=== PATIENT | female | born 1940 | race Asian ===

== ENCOUNTER 2016-12-29 15:04 | Inpatient (IN) | payer MEDICARE, OTHER ==
[~2016-12-29] VITALS: Ht 162.6 cm; Wt 65.7 kg
[~2016-12-29 15:04] MED LIST: APIX5TAB PO; ATOR20TA86 PO; FLUO15CR3 TP; FLUT16H NASAL; HYDR25TA PO; LEVO2.5S7 PO; LORA10TA7 PO; LOSA50TA37 PO; METO-323 PO; VITAD1000 PO
[2016-12-29] MEDS ORDERED: FURO20 PO (15:28)
[2016-12-29 16:36] LABS: BASOPHILS % (AUTO) 0.8 % (0.0-2.0); EOSINOPHILS % (AUTO) 6.9 % (1.0-6.0); HEMATOCRIT 44.8 % (36-46); HEMOGLOBIN 15.2 g/dL (12.0-16.0); LYMPHOCYTES # (AUTO) 1.5 K/uL (1.0-4.8); LYMPHOCYTES % (AUTO) 24.9 % (22.0-44.0); MEAN CORPUSCULAR HEMOGLOBIN 31.1 pg (26.0-34.0); MEAN CORPUSCULAR HGB CONC 33.8 G/dL (31.0-37.0); MEAN CORPUSCULAR VOLUME 92 fL (80-100); MONOCYTES # (AUTO) 0.6 K/uL (0.1-1.0); MONOCYTES % (AUTO) 9.6 % (2.0-9.0); NEUTROPHILS # (AUTO) 3.4 K/uL (1.8-7.7); NEUTROPHILS % (AUTO) 57.8 % (40.0-70.0); PLATELET COUNT (AUTO) 168 K/uL (150-450); RED BLOOD CELL COUNT(AUTO) 4.87 MIL/uL (4.00-5.20); RED CELL DISTRIBUTION WIDTH 13.5 % (11.5-14.5); WHITE BLOOD COUNT (AUTO) 5.9 K/uL (4.5-11.0)
[2016-12-29 16:46] LABS: PROTHROMBIN TIME 10.4 SEC (9.4-11.6)
[2016-12-29 16:48] LABS: ORIG DRAW (USER) PTCARESTAF
[2016-12-29 17:23] LABS: ANION GAP 6 mmol/L (8-16); CALCIUM, TOTAL 8.8 mg/dL (8.8-10.5); CARBON DIOXIDE 26 mmol/L (22-29); CHLORIDE 105 mmol/L (98-107); CREATININE 0.96 mg/dL (0.60-1.30); GLOMERULAR FILTR. RATE CALC 56 mL/min (>60); POTASSIUM 3.5 mmol/L (3.5-5.1); SODIUM SERUM 137 mmol/L (136-145); UREA NITROGEN, BLOOD 20 mg/dL (7-18)
[2016-12-29 17:49] LABS: ALANINE AMINOTRANSFERASE 15 U/L (12-78); ALBUMIN 3.4 g/dL (3.4-5.0); ASPARTATE AMINOTRANSFERASE 13 U/L (15-37); BILIRUBIN,TOTAL 0.4 mg/dL (0.1-1.0); CREATINE KINASE MB 0.9 ng/mL (0-5); CREATINE KINASE, TOTAL 78 U/L (26-192); TOTAL PROTEIN, SERUM 7.8 g/dL (6.4-8.2)
[2016-12-29] MEDS ORDERED: INSULIN ASPART 100 UNITS/ML SQ PRN (19:00)
[2016-12-29] MEDS ORDERED: ACETAMINOPHEN 325 MG TABLET PO PRN ×2 (19:00→22:15)
[2016-12-29] MEDS ORDERED: 0.9% SODIUM CHLORIDE 10 ML SYRINGE IVP PRN (19:00)
[2016-12-29] MEDS ORDERED: ONDANSETRON HCL 4 MG/2 ML VIAL IVP PRN (19:00)
[2016-12-29] MEDS ORDERED: DEXTROSE 50%-WATER 25 GM/50 ML SYRINGE IVP PRN ×3 (19:00→22:15)
[2016-12-29 19:27] LABS: ADD UA MICROSCOPIC NO; APPEARANCE,URINE CLEAR (CLEAR); GLUCOSE, URINE (UA) NEGATIVE (NEGATIVE); KETONES,URINE NEGATIVE (NEGATIVE); LEUKOCYTE ESTERASE ,URINE NEGATIVE (NEGATIVE); OCCULT BLOOD,URINE NEGATIVE (NEGATIVE); PH,URINE 6.5 (5.0-8.0); PROTEIN,URINE NEGATIVE (NEGATIVE)
[2016-12-29 20:39] VITALS: BP 182/93
[2016-12-29] MEDS ORDERED: NITROGLYCERIN 2% (1 GM=INCH) PACKET TP PRN (22:15)
[2016-12-29] MEDS: METOPROLOL SUCCINATE 25 MG ER TABLET PO SCH (22:39)
[2016-12-29 23:07] VITALS: BP 159/88
[2016-12-29] MEDS: INSULIN ASPART 100 UNITS/ML SQ PRN (23:35)
[2016-12-30 04:50] VITALS: BP 162/97
[2016-12-30 07:12] LABS: BASOPHILS # (AUTO) 0.03 K/uL (0.00-0.20); BASOPHILS % (AUTO) 0.4 % (0.0-2.0); EOSINOPHILS # (AUTO) 0.59 K/uL (0.00-0.70); EOSINOPHILS % (AUTO) 8.23 % (1.0-6.0); HEMATOCRIT 43.4 % (36-46); HEMOGLOBIN 14.4 g/dL (12.0-16.0); LYMPHOCYTES # (AUTO) 1.1 K/uL (1.0-4.8); MEAN CORPUSCULAR HGB CONC 33.2 G/dL (31.0-37.0); MEAN CORPUSCULAR VOLUME 93 fL (80-100); MONOCYTES # (AUTO) 0.7 K/uL (0.1-1.0); MONOCYTES % (AUTO) 9.9 % (2.0-9.0); NEUTROPHILS # (AUTO) 4.8 K/uL (1.8-7.7); NEUTROPHILS % (AUTO) 66.5 % (40.0-70.0); PLATELET COUNT (AUTO) 175 K/uL (150-450); RED BLOOD CELL COUNT(AUTO) 4.65 MIL/uL (4.00-5.20); RED CELL DISTRIBUTION WIDTH 13.7 % (11.5-14.5); WHITE BLOOD COUNT (AUTO) 7.1 K/uL (4.5-11.0)
[2016-12-30 07:27] LABS: GLUCOSE,POINT OF CARE 108 MG/DL (70-110)
[2016-12-30] MEDS: LORATADINE 10 MG TABLET PO SCH (07:29)
[2016-12-30] MEDS: FUROSEMIDE 20 MG TABLET PO SCH (07:29)
[2016-12-30] MEDS: LOSARTAN POTASSIUM 50 MG TABLET PO SCH (07:29)
[2016-12-30] MEDS: ATORVASTATIN CALCIUM 20 MG TABLET PO SCH (07:29)
[2016-12-30] MEDS: HEPARIN SODIUM,PORCINE 5,000 UNITS/ML VIAL SQ SCH ×4 (07:29→23:54)
[2016-12-30] MEDS: METOPROLOL SUCCINATE 25 MG ER TABLET PO SCH (07:30)
[2016-12-30] MEDS: HYDROCHLOROTHIAZIDE 25 MG TABLET PO SCH (07:30)
[2016-12-30] MEDS: FLUTICASONE PROPIONATE 50 MCG/SPRAY 16 GM NASAL SPRAY NASAL SCH (07:30)
[2016-12-30] MEDS: APIXABAN 5 MG TABLET PO SCH ×2 (07:31→20:27)
[2016-12-30] MEDS: CHOLECALCIFEROL (VIT D3) 2,000 UNITS TABLET PO SCH (07:31)
[2016-12-30 07:32] LABS: GLUCOSE,POINT OF CARE 172 MG/DL (70-110)
[2016-12-30 07:36] VITALS: BP 190/112
[2016-12-30 07:37] LABS: ALANINE AMINOTRANSFERASE 13 U/L (12-78); ALBUMIN 3.3 g/dL (3.4-5.0); ANION GAP 9 mmol/L (8-16); ASPARTATE AMINOTRANSFERASE 16 U/L (15-37); BILIRUBIN,TOTAL 0.9 mg/dL (0.1-1.0); CALCIUM, TOTAL 8.8 mg/dL (8.8-10.5); CARBON DIOXIDE 26 mmol/L (22-29); CHLORIDE 105 mmol/L (98-107); GLOMERULAR FILTR. RATE CALC > 60 mL/min (>60); POTASSIUM 3.3 mmol/L (3.5-5.1); SODIUM SERUM 140 mmol/L (136-145); TOTAL PROTEIN, SERUM 7.6 g/dL (6.4-8.2); UREA NITROGEN, BLOOD 17 mg/dL (7-18)
[2016-12-30] MEDS ORDERED: CHOLECALCIFEROL (VIT D3) 2,000 UNITS TABLET PO SCH (09:00)
[2016-12-30] MEDS ORDERED: METOPROLOL SUCCINATE 25 MG ER TABLET PO SCH (09:00)
[2016-12-30] MEDS ORDERED: LOSARTAN POTASSIUM 50 MG TABLET PO SCH (09:00)
[2016-12-30] MEDS ORDERED: APIXABAN 5 MG TABLET PO SCH (09:00)
[2016-12-30 09:40] VITALS: BP 205/98
[2016-12-30 11:41] VITALS: BP 158/79
[2016-12-30] MEDS ORDERED: POTASSIUM CHLORIDE 20 MEQ ER TABLET PO PRN (12:15)
[2016-12-30] MEDS ORDERED: POTASSIUM CHLORIDE 10% 40 MEQ/30 ML LIQUID UDCUP PO PRN (12:15)
[2016-12-30] MEDS ORDERED: POTASSIUM CHL 10 MEQ/WATER 50 ML IV PRN ×3 (12:15)
[2016-12-30] MEDS: AmLODIPine BESYLATE 5 MG TABLET PO SCH ×2 (14:23→20:27)
[2016-12-30 15:30] VITALS: BP 154/97
[2016-12-30 17:48] LABS: GLUCOSE,POINT OF CARE 119 MG/DL (70-110)
[2016-12-30 17:48] LABS: GLUCOSE,POINT OF CARE 114 MG/DL (70-110)
[2016-12-30] MEDS: INSULIN ASPART 100 UNITS/ML SQ PRN (17:58)
[2016-12-30 20:10] VITALS: BP 145/97
[2016-12-31 00:09] VITALS: BP 159/99
[2016-12-31 01:12] LABS: GLUCOSE COMMENT 1 Received Meds; GLUCOSE,POINT OF CARE 134 MG/DL (70-110)
[2016-12-31 05:04] VITALS: BP 153/94
[2016-12-31 06:18] LABS: GLUCOSE COMMENT 1 Received Meds; GLUCOSE,POINT OF CARE 135 MG/DL (70-110)
[2016-12-31 06:43] LABS: BASOPHILS % (AUTO) 0.9 % (0.0-2.0); EOSINOPHILS % (AUTO) 10.6 % (1.0-6.0); HEMATOCRIT 47.5 % (36-46); LYMPHOCYTES # (AUTO) 1.4 K/uL (1.0-4.8); MEAN CORPUSCULAR HEMOGLOBIN 31.4 pg (26.0-34.0); MEAN CORPUSCULAR HGB CONC 33.7 G/dL (31.0-37.0); MEAN CORPUSCULAR VOLUME 93 fL (80-100); MONOCYTES # (AUTO) 0.7 K/uL (0.1-1.0); MONOCYTES % (AUTO) 10.7 % (2.0-9.0); NEUTROPHILS # (AUTO) 3.6 K/uL (1.8-7.7); NEUTROPHILS % (AUTO) 55.8 % (40.0-70.0); PLATELET COUNT (AUTO) 181 K/uL (150-450); RED CELL DISTRIBUTION WIDTH 13.5 % (11.5-14.5); WHITE BLOOD COUNT (AUTO) 6.5 K/uL (4.5-11.0)
[2016-12-31 07:10] VITALS: BP 148/99
[2016-12-31 07:16] LABS: ALBUMIN 3.5 g/dL (3.4-5.0); BILIRUBIN,TOTAL 0.8 mg/dL (0.1-1.0); CALCIUM, TOTAL 9.2 mg/dL (8.8-10.5); CHOL/HDL RATIO 2.3 (3.9-5.7); CREATININE 1.08 mg/dL (0.60-1.30); MAGNESIUM 1.9 mg/dL (1.80-2.40); POTASSIUM 3.6 mmol/L (3.5-5.1); TOTAL PROTEIN, SERUM 8.3 g/dL (6.4-8.2)
[2016-12-31 07:25] LABS: HEMOGLOBIN A1C 6.1 % (4.5-6.2)
[2016-12-31] MEDS ORDERED: POTASSIUM CHL 10 MEQ/WATER 50 ML IV PRN (08:00)
[2016-12-31] MEDS ORDERED: POTASSIUM CHLORIDE 20 MEQ ER TABLET PO PRN (08:00)
[2016-12-31] MEDS: HEPARIN SODIUM,PORCINE 5,000 UNITS/ML VIAL SQ SCH ×3 (08:56→23:56)
[2016-12-31] MEDS: LOSARTAN POTASSIUM 50 MG TABLET PO SCH (08:57)
[2016-12-31] MEDS: ATORVASTATIN CALCIUM 20 MG TABLET PO SCH (08:58)
[2016-12-31] MEDS: FLUTICASONE PROPIONATE 50 MCG/SPRAY 16 GM NASAL SPRAY NASAL SCH (08:58)
[2016-12-31] MEDS: LORATADINE 10 MG TABLET PO SCH (08:58)
[2016-12-31] MEDS: FUROSEMIDE 20 MG TABLET PO SCH (08:58)
[2016-12-31] MEDS: HYDROCHLOROTHIAZIDE 25 MG TABLET PO SCH (08:58)
[2016-12-31] MEDS: AmLODIPine BESYLATE 5 MG TABLET PO SCH ×2 (08:58→21:15)
[2016-12-31] MEDS: APIXABAN 5 MG TABLET PO SCH ×2 (08:59→21:15)
[2016-12-31] MEDS: CHOLECALCIFEROL (VIT D3) 2,000 UNITS TABLET PO SCH (08:59)
[2016-12-31] MEDS: POTASSIUM CHLORIDE 20 MEQ ER TABLET PO PRN ×2 (08:59→14:00)
[2016-12-31 11:54] VITALS: BP 151/109
[2016-12-31 13:48] LABS: GLUCOSE,POINT OF CARE 121 MG/DL (70-110)
[2016-12-31] MEDS: HydrALAZINE HCL 25 MG TABLET PO SCH ×2 (14:01→21:15)
[2016-12-31 15:52] VITALS: BP 136/97
[2016-12-31] MEDS: HYPROMELLOSE 0.5% 15 ML OPHTHALMIC SOLUTION OU PRN (16:45)
[2016-12-31 19:49] VITALS: BP 152/76
[2016-12-31 19:57] LABS: GLUCOSE,POINT OF CARE 119 MG/DL (70-110)
[2016-12-31 22:03] LABS: GLUCOSE,POINT OF CARE 166 MG/DL (70-110)
[2017-01-01] VITALS: BP 138/64
[2017-01-01 05:08] VITALS: BP 148/67
[2017-01-01 07:22] VITALS: BP 155/97
[2017-01-01] MEDS: HEPARIN SODIUM,PORCINE 5,000 UNITS/ML VIAL SQ SCH (08:12)
[2017-01-01] MEDS: LORATADINE 10 MG TABLET PO SCH (08:14)
[2017-01-01] MEDS: FLUTICASONE PROPIONATE 50 MCG/SPRAY 16 GM NASAL SPRAY NASAL SCH (08:14)
[2017-01-01] MEDS: ATORVASTATIN CALCIUM 20 MG TABLET PO SCH (08:14)
[2017-01-01] MEDS: HydrALAZINE HCL 25 MG TABLET PO SCH (08:15)
[2017-01-01] MEDS: AmLODIPine BESYLATE 5 MG TABLET PO SCH (08:15)
[2017-01-01] MEDS: CHOLECALCIFEROL (VIT D3) 2,000 UNITS TABLET PO SCH (08:15)
[2017-01-01] MEDS: FUROSEMIDE 20 MG TABLET PO SCH (08:15)
[2017-01-01] MEDS: HYDROCHLOROTHIAZIDE 25 MG TABLET PO SCH (08:15)
[2017-01-01] MEDS: LOSARTAN POTASSIUM 50 MG TABLET PO SCH (08:15)
[2017-01-01] MEDS: APIXABAN 5 MG TABLET PO SCH (08:16)
[2017-01-01] MEDS: HYPROMELLOSE 0.5% 15 ML OPHTHALMIC SOLUTION OU PRN (10:33)
[2017-01-01 11:02] VITALS: BP 178/78
[2017-01-01 11:42] LABS: GLUCOSE,POINT OF CARE 126 MG/DL (70-110)
[2017-01-01 11:47] LABS: GLUCOSE COMMENT 1 Received Meds; GLUCOSE,POINT OF CARE 147 MG/DL (70-110)
[2017-01-01] MEDS ORDERED: AMLO-511 PO (12:01)
[2017-01-01] MEDS ORDERED: HYDR25TA PO (12:02)
[2017-01-01] MEDS ORDERED: KDUR10 PO (12:02)
[2017-01-01] MEDS ORDERED: HYDR25TA84 PO (12:02)
== END 2017-01-01 12:55 | disposition home or self-care (01) | DRG 309 ==
LOC: EMS 15:06 → 5N 18:51
PROVIDERS: ADMIT Family Medicine; ATTEND Family Medicine
DX: I48.91 Unspecified atrial fibrillation (principal); I69.354 Hemiplegia and hemiparesis following cerebral infarction affecting left non-dominant side; I50.9 Heart failure, unspecified; I11.0 Hypertensive heart disease with heart failure; I25.10 Atherosclerotic heart disease of native coronary artery without angina pectoris; I70.0 Atherosclerosis of aorta; M47.814 Spondylosis without myelopathy or radiculopathy, thoracic region; E11.9 Type 2 diabetes mellitus without complications; M19.90 Unspecified osteoarthritis, unspecified site; Z79.01 Long term (current) use of anticoagulants; I10 Essential (primary) hypertension; R07.9 Chest pain, unspecified; Z88.6 Allergy status to analgesic agent; Z95.1 Presence of aortocoronary bypass graft
CPT/HCPCS: 82962; 83036; 83735; 84132; 87081; 93005; 93306; 97161; 97165; 99285; J1644

== ENCOUNTER 2017-05-04 14:18 | Inpatient (IN) | payer MEDICARE, OTHER ==
[~2017-05-04] VITALS: Ht 149.9 cm; Wt 63.0 kg
[~2017-05-04 14:18] MED LIST changes: +AMLO-511 PO; -ATOR20TA86 PO; -FLUO15CR3 TP; -FLUT16H NASAL; +FURO20 PO; +HYDR25TA84 PO; +KDUR10 PO; -LEVO2.5S7 PO; -LORA10TA7 PO; -METO-323 PO
[2017-05-04] MEDS ORDERED: HydrALAZINE HCL 20 MG/ML VIAL IVP ONE (14:45)
[2017-05-04] MEDS ORDERED: NITROGLYCERIN 2% (1 GM=INCH) PACKET TP ONE (14:45)
[2017-05-04] MEDS ORDERED: FUROSEMIDE 40 MG/4 ML VIAL IVP ONE (14:45)
[2017-05-04 14:57] LABS: BASOPHILS # (AUTO) 0.06 K/uL (0.00-0.20); BASOPHILS % (AUTO) 0.9 % (0.0-2.0); EOSINOPHILS # (AUTO) 0.42 K/uL (0.00-0.70); HEMATOCRIT 46.1 % (36-46); HEMOGLOBIN 15.3 g/dL (12.0-16.0); LYMPHOCYTES # (AUTO) 1.7 K/uL (1.0-4.8); LYMPHOCYTES % (AUTO) 26.7 % (22.0-44.0); MEAN CORPUSCULAR HGB CONC 33.2 G/dL (31.0-37.0); MEAN CORPUSCULAR VOLUME 96 fL (80-100); MONOCYTES # (AUTO) 0.7 K/uL (0.1-1.0); MONOCYTES % (AUTO) 10.2 % (2.0-9.0); NEUTROPHILS # (AUTO) 3.6 K/uL (1.8-7.7); NEUTROPHILS % (AUTO) 55.7 % (40.0-70.0); PLATELET COUNT (AUTO) 216 K/uL (150-450); RED BLOOD CELL COUNT(AUTO) 4.79 MIL/uL (4.00-5.20); RED CELL DISTRIBUTION WIDTH 13.4 % (11.5-14.5)
[2017-05-04 15:06] LABS: ANION GAP 9 mmol/L (8-16); CALCIUM, TOTAL 9.3 mg/dL (8.8-10.5); CARBON DIOXIDE 26 mmol/L (22-29); CHLORIDE 102 mmol/L (98-107); GLOMERULAR FILTR. RATE CALC 54 mL/min (>60); GLUCOSE,RANDOM 120 mg/dL (70-110); POTASSIUM 3.3 mmol/L (3.5-5.1); SODIUM SERUM 137 mmol/L (136-145); UREA NITROGEN, BLOOD 14 mg/dL (7-18)
[2017-05-04 15:30] LABS: ALANINE AMINOTRANSFERASE 21 U/L (12-78); ALBUMIN 3.8 g/dL (3.4-5.0); ALKALINE PHOSPHATASE 92 U/L (46-116); ASPARTATE AMINOTRANSFERASE 17 U/L (15-37); BILIRUBIN,TOTAL 0.4 mg/dL (0.1-1.0); CREATINE KINASE MB 1.2 ng/mL (0-5); CREATINE KINASE, TOTAL 82 U/L (26-192); TOTAL PROTEIN, SERUM 8.6 g/dL (6.4-8.2)
[2017-05-04] MEDS ORDERED: POTASSIUM CHLORIDE 20 MEQ ER TABLET PO ONE (15:30)
[2017-05-04] MEDS ORDERED: 0.9% SODIUM CHLORIDE 10 ML SYRINGE IVP PRN (15:30)
[2017-05-04] MEDS ORDERED: ACETAMINOPHEN 325 MG TABLET PO PRN (15:30)
[2017-05-04] MEDS ORDERED: ONDANSETRON HCL 4 MG/2 ML VIAL IVP PRN (15:30)
[2017-05-04] MEDS ORDERED: DILTIAZEM HCL 5 MG/ML 5 ML VIAL IVP ONE (15:30)
[2017-05-04 15:34] LABS: B-TYPE NATRIURETIC PEPTIDE 293 pg/mL (0-100)
[2017-05-04 15:53] LABS: APPEARANCE,URINE CLEAR (CLEAR); BILIRUBIN,URINE NEGATIVE (NEGATIVE); GLUCOSE, URINE (UA) NEGATIVE (NEGATIVE); KETONES,URINE NEGATIVE (NEGATIVE); LEUKOCYTE ESTERASE ,URINE NEGATIVE (NEGATIVE); NITRATE,URINE NEGATIVE (NEGATIVE); OCCULT BLOOD,URINE NEGATIVE (NEGATIVE); PROTEIN,URINE POS 1+ (NEGATIVE); UROBILINOGEN,URINE 0.2 mg/dL (<=1.0)
[2017-05-04 19:41] LABS: GLUCOSE,POINT OF CARE 167 MG/DL (70-110)
[2017-05-04 20:58] VITALS: BP 150/92
[2017-05-05] VITALS (7 sets, daily range): BP systolic 117–163; BP diastolic 60–108
[2017-05-05] MEDS ORDERED: HydrALAZINE HCL 20 MG/ML VIAL IVP PRN (01:30)
[2017-05-05] MEDS: HydrALAZINE HCL 25 MG TABLET PO SCH ×2 (08:12→20:28)
[2017-05-05] MEDS: POTASSIUM CHLORIDE 10 MEQ ER TABLET PO SCH (08:13)
[2017-05-05] MEDS: APIXABAN 5 MG TABLET PO SCH ×2 (08:13→20:28)
[2017-05-05] MEDS: FUROSEMIDE 20 MG TABLET PO SCH (08:13)
[2017-05-05] MEDS: HYDROCHLOROTHIAZIDE 25 MG TABLET PO SCH (08:14)
[2017-05-05] MEDS: CHOLECALCIFEROL (VIT D3) 2,000 UNITS TABLET PO SCH (08:14)
[2017-05-05] MEDS: AmLODIPine BESYLATE 5 MG TABLET PO SCH ×2 (08:14→20:28)
[2017-05-05 08:35] LABS: BASOPHILS % (AUTO) 0.5 % (0.0-2.0); EOSINOPHILS % (AUTO) 2.8 % (1.0-6.0); HEMATOCRIT 45.2 % (36-46); HEMOGLOBIN 15.5 g/dL (12.0-16.0); LYMPHOCYTES # (AUTO) 1.4 K/uL (1.0-4.8); MEAN CORPUSCULAR HEMOGLOBIN 32.5 pg (26.0-34.0); MEAN CORPUSCULAR HGB CONC 34.3 G/dL (31.0-37.0); MEAN CORPUSCULAR VOLUME 95 fL (80-100); MONOCYTES # (AUTO) 0.7 K/uL (0.1-1.0); MONOCYTES % (AUTO) 8.1 % (2.0-9.0); NEUTROPHILS # (AUTO) 6.3 K/uL (1.8-7.7); NEUTROPHILS % (AUTO) 72.6 % (40.0-70.0); PLATELET COUNT (AUTO) 221 K/uL (150-450); RED BLOOD CELL COUNT(AUTO) 4.78 MIL/uL (4.00-5.20); RED CELL DISTRIBUTION WIDTH 13.3 % (11.5-14.5)
[2017-05-05 09:01] LABS: CALCIUM, TOTAL 9.3 mg/dL (8.8-10.5); CREATININE 1.12 mg/dL (0.60-1.30); MAGNESIUM 1.9 mg/dL (1.80-2.40); POTASSIUM 3.6 mmol/L (3.5-5.1)
[2017-05-05] MEDS: LOSARTAN POTASSIUM 50 MG TABLET PO SCH (11:12)
[2017-05-05] MEDS ORDERED: HEPARIN SODIUM,PORCINE 5,000 UNITS/ML VIAL SQ SCH (16:00)
[2017-05-05] MEDS ORDERED: POTASSIUM CHLORIDE 20 MEQ ER TABLET PO ONE (16:00)
[2017-05-06 04:58] VITALS: BP 148/96
[2017-05-06 07:07] VITALS: BP 144/80
[2017-05-06 07:15] LABS: CALCIUM, TOTAL 9.3 mg/dL (8.8-10.5); CREATININE 1.15 mg/dL (0.60-1.30); MAGNESIUM 1.8 mg/dL (1.80-2.40); POTASSIUM 3.6 mmol/L (3.5-5.1)
[2017-05-06] MEDS: CHOLECALCIFEROL (VIT D3) 2,000 UNITS TABLET PO SCH (08:56)
[2017-05-06] MEDS: POTASSIUM CHLORIDE 10 MEQ ER TABLET PO SCH (08:59)
[2017-05-06] MEDS: FUROSEMIDE 20 MG TABLET PO SCH (08:59)
[2017-05-06] MEDS: APIXABAN 5 MG TABLET PO SCH ×2 (08:59→20:26)
[2017-05-06] MEDS: HydrALAZINE HCL 25 MG TABLET PO SCH ×2 (08:59→20:26)
[2017-05-06] MEDS: AmLODIPine BESYLATE 5 MG TABLET PO SCH ×2 (09:00→20:26)
[2017-05-06] MEDS: LOSARTAN POTASSIUM 50 MG TABLET PO SCH (09:00)
[2017-05-06] MEDS: HYDROCHLOROTHIAZIDE 25 MG TABLET PO SCH (09:01)
[2017-05-06 12:00] VITALS: BP 136/88
[2017-05-06] MEDS ORDERED: ACETAMINOPHEN 325 MG TABLET PO PRN (12:45)
[2017-05-06 15:35] VITALS: BP 143/59
[2017-05-06 20:07] VITALS: BP 147/74
[2017-05-06] MEDS: METOPROLOL TARTRATE 25 MG TABLET PO SCH (20:26)
[2017-05-07 00:01] VITALS: BP 154/77
[2017-05-07 04:45] VITALS: BP 147/77
[2017-05-07 07:18] VITALS: BP 113/56
[2017-05-07] MEDS: POTASSIUM CHLORIDE 10 MEQ ER TABLET PO SCH (08:15)
[2017-05-07] MEDS: APIXABAN 5 MG TABLET PO SCH (08:15)
[2017-05-07] MEDS: AmLODIPine BESYLATE 5 MG TABLET PO SCH (08:15)
[2017-05-07] MEDS: HYDROCHLOROTHIAZIDE 25 MG TABLET PO SCH (08:15)
[2017-05-07] MEDS: METOPROLOL TARTRATE 25 MG TABLET PO SCH (08:15)
[2017-05-07] MEDS: CHOLECALCIFEROL (VIT D3) 2,000 UNITS TABLET PO SCH (08:15)
[2017-05-07 11:09] VITALS: BP 131/82
[2017-05-07] MEDS: FUROSEMIDE 20 MG TABLET PO SCH (13:31)
[2017-05-07] MEDS: HydrALAZINE HCL 25 MG TABLET PO SCH (13:31)
[2017-05-07] MEDS: LOSARTAN POTASSIUM 50 MG TABLET PO SCH (13:31)
[2017-05-07] MEDS ORDERED: METO25 PO ×2 (13:53→13:54)
== END 2017-05-07 15:30 | disposition home or self-care (01) | DRG 281 ==
LOC: EMS 14:20 → 5N 18:42
PROVIDERS: ADMIT Internal Medicine; ATTEND Internal Medicine
DX: I21.4 Non-ST elevation (NSTEMI) myocardial infarction (principal); I16.1 Hypertensive emergency; I48.91 Unspecified atrial fibrillation; I11.0 Hypertensive heart disease with heart failure; I50.9 Heart failure, unspecified; E11.9 Type 2 diabetes mellitus without complications; M19.90 Unspecified osteoarthritis, unspecified site; E87.6 Hypokalemia; Z88.6 Allergy status to analgesic agent; Z86.73 Personal history of transient ischemic attack (TIA), and cerebral infarction without residual deficits; Z88.8 Allergy status to other drugs, medicaments and biological substances
CPT/HCPCS: 82962; 83735; 93005; 96374; 96375; 97161; 97166; 97530; 97535; 99291; J0360; J1940; J3490

== ENCOUNTER 2017-08-31 08:49 | Emergency (ER) | payer MEDICARE, OTHER ==
[~2017-08-31] VITALS: Ht 152.4 cm; Wt 61.4 kg
[~2017-08-31 08:49] MED LIST changes: +METO25 PO
[2017-08-31] MEDS ORDERED: LORA10TA7 PO (09:03)
[2017-08-31] MEDS ORDERED: VITAD1000 PO (09:03)
[2017-08-31] MEDS ORDERED: ATOR40TA28 PO (09:03)
[2017-08-31] MEDS: ACETAMINOPHEN 500 MG TABLET PO ONE (09:23)
[2017-08-31 09:44] LABS: BASOPHILS % (AUTO) 0.9 % (0.0-2.0); EOSINOPHILS % (AUTO) 3.2 % (1.0-6.0); HEMATOCRIT 46.1 % (36-46); HEMOGLOBIN 15.5 g/dL (12.0-16.0); LYMPHOCYTES # (AUTO) 1.4 K/uL (1.0-4.8); LYMPHOCYTES % (AUTO) 17.3 % (22.0-44.0); MEAN CORPUSCULAR HEMOGLOBIN 30.9 pg (26.0-34.0); MEAN CORPUSCULAR HGB CONC 33.7 G/dL (31.0-37.0); MEAN CORPUSCULAR VOLUME 92 fL (80-100); MONOCYTES # (AUTO) 0.4 K/uL (0.1-1.0); MONOCYTES % (AUTO) 5.1 % (2.0-9.0); NEUTROPHILS # (AUTO) 6.1 K/uL (1.8-7.7); NEUTROPHILS % (AUTO) 73.5 % (40.0-70.0); PLATELET COUNT (AUTO) 164 K/uL (150-450); RED BLOOD CELL COUNT(AUTO) 5.01 MIL/uL (4.00-5.20); RED CELL DISTRIBUTION WIDTH 13.3 % (11.5-14.5)
[2017-08-31 09:50] LABS: PROTHROMBIN TIME 10.2 SEC (9.4-11.6)
[2017-08-31 09:51] LABS: ANION GAP 11 mmol/L (8-16); CARBON DIOXIDE 27 mmol/L (22-29); CHLORIDE 101 mmol/L (98-107); CREATININE 0.99 mg/dL (0.60-1.30); GLOMERULAR FILTR. RATE CALC 54 mL/min (>60); GLUCOSE,RANDOM 193 mg/dL (70-110); POTASSIUM 3.1 mmol/L (3.5-5.1); SODIUM SERUM 139 mmol/L (136-145); UREA NITROGEN, BLOOD 20 mg/dL (7-18)
[2017-08-31 09:58] LABS: ALANINE AMINOTRANSFERASE 15 U/L (12-78); ALBUMIN 3.5 g/dL (3.4-5.0); ALKALINE PHOSPHATASE 80 U/L (46-116); ASPARTATE AMINOTRANSFERASE 18 U/L (15-37); BILIRUBIN,TOTAL 0.7 mg/dL (0.1-1.0); CREATINE KINASE, TOTAL 58 U/L (26-192); TOTAL PROTEIN, SERUM 8.1 g/dL (6.4-8.2)
[2017-08-31] MEDS ORDERED: GADOBUTROL 1 MMOL/ML 10 ML VIAL IVP ONE (11:07)
[2017-08-31 12:27] LABS: APPEARANCE,URINE CLEAR (CLEAR); BILIRUBIN,URINE NEGATIVE (NEGATIVE); GLUCOSE, URINE (UA) 100 mg/dL (NEGATIVE); KETONES,URINE NEGATIVE (NEGATIVE); LEUKOCYTE ESTERASE ,URINE NEGATIVE (NEGATIVE); NITRATE,URINE NEGATIVE (NEGATIVE); OCCULT BLOOD,URINE SMALL (NEGATIVE); PH,URINE 7.5 (5.0-8.0); PROTEIN,URINE SEE CONFIRM (NEGATIVE); UROBILINOGEN,URINE 0.2 mg/dL (<=1.0)
[2017-08-31 12:40] LABS: BACTERIA,URINE None Seen /HPF (None Seen); SULFOSALICYLIC ACID,URINE 2+ (Negative)
[2017-08-31 13:30] VITALS: BP 159/110
== END 2017-08-31 14:14 | disposition short-term general hospital (02) ==
LOC: EMS 08:50
DX: S06.4X9A Epidural hemorrhage with loss of consciousness of unspecified duration, initial encounter (principal); S49.91XA Unspecified injury of right shoulder and upper arm, initial encounter; M54.6 Pain in thoracic spine; I10 Essential (primary) hypertension; I48.91 Unspecified atrial fibrillation; R53.1 Weakness; R51 Headache; Z86.73 Personal history of transient ischemic attack (TIA), and cerebral infarction without residual deficits; Z88.6 Allergy status to analgesic agent; X58.XXXA Exposure to other specified factors, initial encounter; Y93.89 Activity, other specified; Y92.89 Other specified places as the place of occurrence of the external cause; Y99.8 Other external cause status
CPT/HCPCS: 36415; 51702; 70450; 71045; 72125; 72156; 72157; 73030; 80053; 81001; 81002; 82550; 84484; 85025; 85610; 93005; 99285; A9585

== ENCOUNTER 2017-11-23 18:01 | Emergency (ER) | payer MEDICARE, OTHER ==
[~2017-11-23] VITALS: Ht 175.3 cm; Wt 52.7 kg
[~2017-11-23 18:01] MED LIST changes: +ATOR40TA28 PO; +LORA10TA7 PO
[2017-11-23] MEDS ORDERED: ETOMIDATE 2 MG/ML 10 ML VIAL IVP ONE (18:03)
[2017-11-23] MEDS ORDERED: SUCCINYLCHOLINE CHLORIDE 20 MG/ML 10 ML VIAL IVP ONE (18:03)
[2017-11-23] MEDS ORDERED: NICARDipine 20 MG/DEXT,ISO-OSM 200 ML IV PRN (18:19)
[2017-11-23] MEDS ORDERED: ASCO500 PO (18:22)
[2017-11-23] MEDS ORDERED: ENOX30DI5 SQ (18:23)
[2017-11-23 18:28] LABS: EOSINOPHILS % (AUTO) 0.1 % (1.0-6.0); HEMATOCRIT 34.3 % (36-46); HEMOGLOBIN 11.3 g/dL (12.0-16.0); LYMPHOCYTES % (AUTO) 15.5 % (22.0-44.0); MEAN CORPUSCULAR HEMOGLOBIN 29.4 pg (26.0-34.0); MEAN CORPUSCULAR HGB CONC 32.9 G/dL (31.0-37.0); MEAN CORPUSCULAR VOLUME 89 fL (80-100); MONOCYTES # (AUTO) 0.1 K/uL (0.1-1.0); MONOCYTES % (AUTO) 1.8 % (2.0-9.0); NEUTROPHILS # (AUTO) 5.3 K/uL (1.8-7.7); NEUTROPHILS % (AUTO) 81.6 % (40.0-70.0); PLATELET COUNT (AUTO) 304 K/uL (150-450); RED BLOOD CELL COUNT(AUTO) 3.85 MIL/uL (4.00-5.20); RED CELL DISTRIBUTION WIDTH 16.4 % (11.5-14.5)
[2017-11-23] MEDS ORDERED: NITROGLYCERIN 2% (1 GM=INCH) PACKET TP ONE (18:30)
[2017-11-23 18:40] LABS: PROTHROMBIN TIME 10.7 SEC (9.4-11.6)
[2017-11-23 18:46] LABS: ANION GAP 15 mmol/L (8-16); CALCIUM, TOTAL 9.2 mg/dL (8.8-10.5); CARBON DIOXIDE 20 mmol/L (22-29); CHLORIDE 103 mmol/L (98-107); CREATININE 4.56 mg/dL (0.60-1.30); GLOMERULAR FILTR. RATE CALC 9 mL/min (>60); GLUCOSE,RANDOM 263 mg/dL (70-110); POTASSIUM 3.4 mmol/L (3.5-5.1); SODIUM SERUM 138 mmol/L (136-145); UREA NITROGEN, BLOOD 34 mg/dL (7-18)
[2017-11-23 18:50] LABS: ALANINE AMINOTRANSFERASE 18 U/L (12-78); ALBUMIN 3.2 g/dL (3.4-5.0); ALKALINE PHOSPHATASE 91 U/L (46-116); ASPARTATE AMINOTRANSFERASE 33 U/L (15-37); BILIRUBIN,TOTAL 0.3 mg/dL (0.1-1.0); CREATINE KINASE, TOTAL 18 U/L (26-192)
[2017-11-23 19:16] LABS: ABG A-A DIFF O2 57.6 mmHg (10-20.0); ABG BASE EXCESS -6.8 mmol/L (-2.0-3.0); ABG METHEMOGLOBIN 0.6 % (0.0-1.5); ABG OXYGEN CONTENT 16.3 mL/dL (15.0-23.0); ABG OXYGEN SATURATION 99.6 % (95.0-98.0); ABG PCO2 27 mmHg (35-45); ABG PH 7.429 (7.35-7.450); ABG TOTAL HEMOGLOBIN 11.5 G/dL (12.0-18.0); PO2, ARTERIAL BG 196.4 mmHg (75.0-83.0); SOURCE, BLOOD GAS ARTERIAL; TEMPERATURE, FAHRENHEIT, BG 98.6 FAHREN (96.0-98.6)
[2017-11-23 19:17] LABS: O2 DEVICE,BLOOD GAS VENTILATOR (ROOM AIR); PEEP,BG 5 cm H2O; SITE, BLOOD GAS LFT RADIAL; VT, ABG 500 ml
[2017-11-23] MEDS ORDERED: SODIUM CHLORIDE 0.9% 1,000 ML IV ONE (20:00)
[2017-11-23] MEDS ORDERED: DOPamine HCL 400 MG/D5%-WATER 250 ML IV PRN (20:02)
[2017-11-23] MEDS ORDERED: NALOXONE HCL 1 MG/ML 2 ML SYG ONE (20:02)
[2017-11-23 20:09] VITALS: BP 70/42
[2017-11-23] MEDS ORDERED: NALOXONE HCL 1 MG/ML 2 ML SYG IVP ONE (20:15)
[2017-11-23 22:36] LABS: GLUCOSE, URINE (UA) 100 mg/dL (NEGATIVE); PH,URINE 5.5 (5.0-8.0); PROTEIN,URINE SEE CONFIRM (NEGATIVE)
[2017-11-23 22:37] LABS: BILIRUBIN,URINE NEGATIVE (NEGATIVE); KETONES,URINE 15 mg/dL (NEGATIVE); NITRATE,URINE NEGATIVE (NEGATIVE); OCCULT BLOOD,URINE NEGATIVE (NEGATIVE); UROBILINOGEN,URINE 0.2 mg/dL (<=1.0)
[2017-11-23 22:38] LABS: LEUKOCYTE ESTERASE ,URINE NEGATIVE (NEGATIVE)
[2017-11-23 22:47] LABS: SULFOSALICYLIC ACID,URINE 2+ (Negative)
[2017-11-23 22:48] LABS: BACTERIA,URINE None Seen /HPF (None Seen); RBC,URINE None Seen /HPF (0-2); WBC,URINE None Seen /HPF (0-5)
[2017-11-23 22:49] LABS: SQUAMOUS EPITHELIAL CELL,UR Rare /LPF (None Seen)
[2017-11-24 11:29] LABS: APPEARANCE,URINE SLIGHTLY CLOUDY (CLEAR)
== END 2017-11-23 20:52 | disposition short-term general hospital (02) ==
LOC: EMS 18:02
DX: I62.9 Nontraumatic intracranial hemorrhage, unspecified (principal); I63.9 Cerebral infarction, unspecified; I48.91 Unspecified atrial fibrillation; E11.9 Type 2 diabetes mellitus without complications; E78.00 Pure hypercholesterolemia, unspecified; I10 Essential (primary) hypertension; Z88.6 Allergy status to analgesic agent
CPT/HCPCS: 31500; 70450; 71045; 80053; 81001; 82550; 82805; 84484; 85025; 85610; 85730; 86850; 86900; 86901; 93005; 96365; 96375; 99291; J0330; J1265; J2310; J3490; 94002